=== PATIENT | female | born 1990 | race Caucasian/White ===

== ENCOUNTER 2016-08-12 02:31 | Emergency (ER) | payer MEDICAID ==
[~2016-08-12] VITALS: Ht 180.3 cm; Wt 86.2 kg
[~2016-08-12 02:31] MED LIST: ALBUTEROL0.09 MG/A1
[2016-08-12 02:35] VITALS: BP 129/73
--- NOTE | 2016-08-12 02:47 | NUR ---
PATIENT AMBULATED TO ER BED 7.
--- NOTE | 2016-08-12 02:50 | NUR ---
PT PRESENT TO ER WIT C/O DIFFICULTY BREATHING WITH RUNNYNOSE, COUGH , H/A FOR 3 DAYS.
[2016-08-12] MEDS ORDERED: ALBUTEROL SULFATE/IPRATROPIU 3 ML SOL IH ONE (03:05)
[2016-08-12 04:00] VITALS: BP 125/68
--- NOTE | 2016-08-12 04:00 | NUR ---
Patient discharged with v/s stable. Written and verbal after care instructions given and explained. Patient alert, oriented and verbalized understanding of instructions. Ambulatory with steady gait. All questions addressed prior to discharge. ID band removed. Patient advised to follow up with PMD. Rx of ALBUTEROL 90MCG/ACTUATION INHALATION, AZITHROMYCIN 250MG PO given. Patient educated on indication of medication including possible reaction and side effects. Opportunity to ask questions provided and answered.
== END 2016-08-12 04:00 | disposition home or self-care (01) ==
LOC: MED 02:31
DX: J02.8 Acute pharyngitis due to other specified organisms (principal); B96.89 Other specified bacterial agents as the cause of diseases classified elsewhere; J45.901 Unspecified asthma with (acute) exacerbation; R03.0 Elevated blood-pressure reading, without diagnosis of hypertension; Z88.1 Allergy status to other antibiotic agents
CPT/HCPCS: 94640; 99283; J7620

== ENCOUNTER 2016-09-22 07:34 | Emergency (ER) | payer MEDICAID, OTHER ==
[~2016-09-22] VITALS: Ht 182.9 cm; Wt 86.2 kg
[~2016-09-22 07:34] MED LIST changes: +ALBU0.0939; -ALBUTEROL0.09 MG/A1
[2016-09-22 07:44] VITALS: BP 120/76
--- NOTE | 2016-09-22 07:47 | NUR ---
Patient ambulated to bed 08.
--- NOTE | 2016-09-22 07:50 | NUR ---
PT PRESENTS TO ER W/C/O ITCHINESS. PT STATES SHE HAS FIBERGLASS EMBEDDED IN HER SKIN FROM 3 MONTHS AGO AND LAST NOC SHE HAD WHITE PARTICLES SEEPING OUT OF HER SKIN. HX ECZEMA, ASTHMA. DENIES N/V/D; SKIN IS PINK/WARM/DRY; AAOX4 WITH EVEN AND STEADY GAIT; LUNGS CLEAR BL; HR EVEN AND REGULAR; PT DENIES ANY FEVER, CP, SOB, OR COUGH AT THIS TIME; PATIENT STATES PAIN OF 8/10 AT THIS TIME; VSS; PATIENT POSITIONED FOR COMFORT; HOB ELEVATED; BEDRAILS UP X2; BED DOWN. ER MD MADE AWARE OF PT STATUS.
--- NOTE | 2016-09-22 07:50 | NUR ---
Note undone in EDM - 09/22/16 at 0756 by [email or web address] PT PRESENTS TO ER W/C/O ITCHINESS. PT STATES SHE HAS FIBERGLASS EMBEDDED IN HER SKIN FROM 3 MONTHS AGO AND LAST NOC SHE HAD WHITE PARTICLES SEEPING OUT OF HER SKIN. HX ECZEMA, ASTHMA.PATIENT PRESENTS TO ED WITH . PT STATES . DENIES N/V/D; SKIN IS PINK/WARM/DRY; AAOX4 WITH EVEN AND STEADY GAIT; LUNGS CLEAR BL; HR EVEN AND REGULAR; PT DENIES ANY FEVER, CP, SOB, OR COUGH AT THIS TIME; PATIENT STATES PAIN OF 0/10 AT THIS TIME; VSS; PATIENT POSITIONED FOR COMFORT; HOB ELEVATED; BEDRAILS UP X2; BED DOWN. ER MD MADE AWARE OF PT STATUS.
[2016-09-22] MEDS ORDERED: NACL 0.9% 1,000 ML IV ONE (08:41)
--- NOTE | 2016-09-22 08:45 | NUR ---
ER MD DR LOZANO EVALUATING PT AT BEDSIDE
--- NOTE | 2016-09-22 08:54 | NUR ---
LAB at bedside.
[2016-09-22] MEDS ORDERED: diphenhydrAMINE 50 MG/ML VIAL IVP ONE (08:55)
[2016-09-22] MEDS ORDERED: KETOROLAC 30 MG/ML VIAL IVP ONE (08:55)
--- NOTE | 2016-09-22 08:55 | NUR ---
INSERTED IV CATH NO 20G RAC; PT TOLERATED PROCEDURE WELL; IV PATENT/INTACT.
--- NOTE | 2016-09-22 09:02 | NUR ---
PT STATED HEADACHE 11/01 ; ADMINISTERED MEDS ORDERED .
[2016-09-22 09:06] LABS: BASOPHILS # (AUTO) 0.3 K/uL (0.00-0.22); BASOPHILS % (AUTO) 3.8 % (0.0-2.0); EOSINOPHILS # (AUTO) 0.1 K/uL (0-0.4); EOSINOPHILS % (AUTO) 1.6 % (0.0-4.0); HEMATOCRIT 39.7 % (36-48); HEMOGLOBIN 13.1 g/dL (12.0-16.0); LYMPHOCYTES # (AUTO) 2.4 K/uL (2.5-16.5); LYMPHOCYTES % (AUTO) 27.1 % (20.5-51.1); MEAN CORPUSCULAR HEMOGLOBIN 30 pg (27-31); MEAN CORPUSCULAR HGB CONC 33 g/dL (33-37); MEAN CORPUSCULAR VOLUME 90 fL (80-94); MONOCYTES # (AUTO) 0.8 K/uL (0.8-1.0); MONOCYTES % (AUTO) 8.5 % (1.7-9.3); NEUTROPHILS # (AUTO) 5.3 K/uL (1.8-7.7); PLATELET COUNT (AUTO) 445 K/uL (140-450); RED BLOOD CELL COUNT(AUTO) 4.39 MIL/uL (4.20-5.40); RED CELL DISTRIBUTION WIDTH 13.7 % (11.6-13.7); WHITE BLOOD COUNT (AUTO) 8.9 K/uL (4.8-10.8)
[2016-09-22 09:10] LABS: APPEARANCE,URINE CLEAR (CLEAR); BILIRUBIN,URINE NEGATIVE (NEGATIVE); BLOOD, URINE NEGATIVE (NEGATIVE); COLOR,URINE YELLOW (YELLOW); LEUKOCYTE ESTERASE ,URINE NEGATIVE (NEGATIVE); NITRITE, URINE NEGATIVE (NEGATIVE); PH,URINE 5.5 (5.0-9.0); PROTEIN,URINE 1+ (NEGATIVE); UGLUCOSE NEGATIVE (NEGATIVE); UROBILINOGEN,URINE 0.2 EU/dL (0.2 - 1)
[2016-09-22 09:17] LABS: AMPHETAMINE, URINE POS. ng/ml (NEG <=1000); BARBITURATE, URINE NEG. ng/ml (NEG <=200); BENZODIAZEPINE, URINE NEG. ng/mL (NEG <=200); CANNABINOID, URINE POS. ng/mL (NEG <=50); COCAINE, URINE NEG. ng/mL (NEG <=300); OPIATE, URINE NEG. ng/mL (NEG <=2000); PHENCYCLIDINE SCREEN,URINE NEG. ng/mL (NEG <=25)
[2016-09-22 09:20] LABS: PARTIAL THROMBOPLASTIN TIME 28.3 secs (22-35.6); PROTHROMBIN TIME 9.9 secs (10.8-13.4)
[2016-09-22 09:22] LABS: ALANINE AMINOTRANSFERASE 17 U/L (14-59); ALCOHOL, BLOOD < 3 mg/dL (<3); ALKALINE PHOSPHATASE 80 U/L (46-116); ANION GAP 12.8 (8-16); ASPARTATE AMINOTRANSFERASE 15 U/L (15-37); BILIRUBIN,DIRECT 0.1 mg/dL (0.0-0.3); CALCIUM 8.8 mg/dL (8.5-10.1); CARBON DIOXIDE 26.8 mmol/L (21-32); CHLORIDE 102 mmol/L (98-107); CREATININE 0.9 mg/dL (0.6-1.3); GFR ARICAN-AMERICAN 99 mL/min (>90); GFR NON ARICAN-AMERICAN 82 mL/min (>90); GLUCOSE 86 mg/dL (74-106); POTASSIUM 3.6 mmol/L (3.5-5.1); SODIUM SERUM 138 mmol/L (136-145); TOTAL BILIRUBIN 0.3 mg/dL (0.0-1.0); TOTAL PROTEIN, SERUM 8.2 g/dL (6.4-8.2); UREA NITROGEN, BLOOD 13 mg/dL (7-18)
[2016-09-22 09:41] LABS: BACTERIA,URINE 1+ /HPF (None Seen); MUCUS,URINE 1+ /LPF (None Seen); RBC,URINE 0-5 (RARE) /HPF (0-5); SQUAMOUS EPITHELIAL CELL,UR 0-3 (FEW) /LPF (0-3 (FEW)); WBC,URINE 0-5 (RARE) /HPF (0-5)
--- NOTE | 2016-09-22 09:43 | NUR ---
Patient appears to be resting comfortably in bed. Vital Signs within normal limits. Respirations even and unlabored.WILL CONTINUE TO MONITOR.
--- NOTE | 2016-09-22 11:04 | NUR ---
PT'S GIRLFRIEND AT BEDSIDE. PT STATES NO PAIN .Patient appears to be resting comfortably in bed. Vital Signs within normal limits. Respirations even and unlabored.WILL CONTINUE TO MONITOR.
--- NOTE | 2016-09-22 11:16 | NUR ---
ER MD DR LOZANO REEVALUATING PT AT BEDSIDE.
--- NOTE | 2016-09-22 11:35 | NUR ---
JUANITO LOZANO REEVALUATING PT AT BEDSIDE. Addendum: 09/22/16 at 1136 by [email or web address] PT C/O FIBER GLASS IN HEREYES. Addendum: 09/22/16 at 1145 by [email or web address] PT STATES CAN SEE CLEARLY BUT IRRIATED WHEN MOVING HER EYES.
[2016-09-22 12:00] VITALS: BP 114/66
--- NOTE | 2016-09-22 12:00 | NUR ---
Patient discharged with v/s stable. Written and verbal after care instructions given and explained. Patient alert, oriented and verbalized understanding of instructions. Ambulatory with steady gait. All questions addressed prior to discharge. ID band removed. Patient advised to follow up with PMD. Rx of BENADRYL ALLERGY, ALBUTERAL& POLYSPORIN OINTMENT given. Patient educated on indication of medication including possible reaction and side effects. Opportunity to ask questions provided and answered.
== END 2016-09-22 12:00 | disposition home or self-care (01) ==
LOC: MED 07:34
CPT/HCPCS: 36415; 70450; 80053; 80076; 80305; 81001; 81025; 85025; 85610; 85730; 87086; 93005; 96361; 96374; 96375; 99285; G0482; J1200; J1885; J7030

== ENCOUNTER 2016-11-09 18:37 | Emergency (ER) | payer OTHER ==
[~2016-11-09] VITALS: Ht 182.9 cm; Wt 82.7 kg
[2016-11-09 18:40] VITALS: BP 135/77
--- NOTE | 2016-11-09 19:31 | NUR ---
patient to er bed 8
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
--- NOTE | 2016-11-09 20:14 | NUR ---
Patient discharged with v/s stable. Written and verbal after care instructions given and explained. Patient verbalized understanding. Ambulatory with steady gait. All questions addressed prior to discharge. Advised to follow up with PMD.
[2016-11-09 20:17] VITALS: BP 135/77
== END 2016-11-09 20:17 | disposition home or self-care (01) ==
LOC: MED 18:37
DX: F41.9 Anxiety disorder, unspecified (principal); R51 Headache; J45.909 Unspecified asthma, uncomplicated; F32.9 Major depressive disorder, single episode, unspecified; Z88.1 Allergy status to other antibiotic agents; Z79.899 Other long term (current) drug therapy
CPT/HCPCS: 99284

== ENCOUNTER 2016-12-20 22:21 | Emergency (ER) | payer OTHER ==
[~2016-12-20] VITALS: Ht 182.9 cm; Wt 79.8 kg
[2016-12-20 22:35] VITALS: BP 137/90
--- NOTE | 2016-12-20 22:58 | NUR ---
PT TAKEN TO BED 3
[2016-12-20 23:00] VITALS: BP 137/90
--- NOTE | 2016-12-20 23:00 | NUR ---
PATIENT PRESENTS TO ED WITH VAG PAIN WITH ITCHINESS, FOR A MONTH, WITH ABSCESSES ON HER BODY FOR A MONTH TOO. PT DENIES N/V/D; SKIN IS PINK/WARM/DRY; AAOX4 WITH EVEN AND STEADY GAIT; LUNGS CLEAR BL; HR EVEN AND REGULAR; PT DENIES ANY FEVER, CP, SOB, OR COUGH AT THIS TIME; PATIENT STATES PAIN OF 7/10 AT THIS TIME; VSS; PATIENT POSITIONED FOR COMFORT; HOB ELEVATED; BEDRAILS UP X2; BED DOWN. ER MD MADE AWARE OF PT STATUS.
--- NOTE | 2016-12-20 23:02 | NUR ---
PT REFUSING TO GIVE A UA. SHE STS " I WILL TALK TO THE ER MD ABOUT IT FRIST. " ER MD NOTIFTED
--- NOTE | 2016-12-20 23:14 | NUR ---
PT ASKED FOR WARM PACK FOR WOUND PAIN. WARM PACK GIVEN. ER MD DR BONNER AT BEDSIDE
--- NOTE | 2016-12-20 23:15 | NUR ---
Dr. Alejandre evaluating patient at bedside.
[2016-12-20] MEDS ORDERED: PRON INH (23:18)
--- NOTE | 2016-12-20 23:38 | NUR ---
FEMALE CHAPERONED FOR DR. KIMBALL DURING PATIENT EXAM
[2016-12-21] MEDS ORDERED: predniSONE 20 MG TAB PO ONE
--- NOTE | 2016-12-21 00:11 | NUR ---
Patient discharged with v/s stable. Written and verbal after care instructions given and explained. Patient alert, oriented and verbalized understanding of instructions. Ambulatory with steady gait. All questions addressed prior to discharge. ID band removed. Patient advised to follow up with PMD. Rx of ibuprofen and medrol dosepak given. Patient educated on indication of medication including possible reaction and side effects. Opportunity to ask questions provided and answered.
== END 2016-12-21 00:11 | disposition home or self-care (01) ==
LOC: MED 22:21
DX: S30.861A Insect bite (nonvenomous) of abdominal wall, initial encounter (principal); S80.869A Insect bite (nonvenomous), unspecified lower leg, initial encounter; S40.862A Insect bite (nonvenomous) of left upper arm, initial encounter; S40.861A Insect bite (nonvenomous) of right upper arm, initial encounter; S30.860A Insect bite (nonvenomous) of lower back and pelvis, initial encounter; R03.0 Elevated blood-pressure reading, without diagnosis of hypertension; W57.XXXA Bitten or stung by nonvenomous insect and other nonvenomous arthropods, initial encounter; Y93.89 Activity, other specified; Y92.89 Other specified places as the place of occurrence of the external cause; Y99.8 Other external cause status
CPT/HCPCS: 99283; J7512

== ENCOUNTER 2018-06-09 11:46 | Emergency (ER) | payer SELFPAY ==
[~2018-06-09] VITALS: Ht 182.9 cm; Wt 79.4 kg
[~2018-06-09 11:46] MED LIST changes: -ALBU0.0939; +PRON INH
[2018-06-09 11:58] VITALS: BP 132/79
[2018-06-09 13:06] VITALS: BP 113/61
--- NOTE | 2018-06-09 13:10 | NUR ---
REASSESED PT. FOOT PAIN 09/01
--- NOTE | 2018-06-09 14:25 | NUR ---
1ST CALL, PT NOT IN LOBBY
--- NOTE | 2018-06-09 14:44 | NUR ---
2ND CALL, PT NOT IN LOBBY
== END 2018-06-09 14:25 | disposition left against medical advice (07) ==
LOC: MED 11:46
DX: M79.672 Pain in left foot (principal); Z53.21 Procedure and treatment not carried out due to patient leaving prior to being seen by health care provider

== ENCOUNTER 2021-09-05 17:03 | Emergency (ER) | payer OTHER ==
[~2021-09-05] VITALS: Ht 180.3 cm; Wt 72.6 kg
[2021-09-05 17:06] VITALS: BP 119/71
--- NOTE | 2021-09-05 17:14 | NUR ---
PT AMB TO BED4.
--- NOTE | 2021-09-05 17:20 | NUR ---
walked in c/o r foot pain onset 3 days while playing basketball. denies fall or injury. aaox3, ambulatory, vitals stable.
[2021-09-05] MEDS ORDERED: IBUPROFEN 600 MG TAB PO ONE (17:35)
--- NOTE | 2021-09-05 17:52 | NUR ---
XR AT BEDSIDE
[2021-09-05] MEDS ORDERED: IBUP-2213 PO (18:15)
--- NOTE | 2021-09-05 18:37 | NUR ---
Patient discharged with v/s stable. Written and verbal after care instructions given and explained. Patient alert, oriented and verbalized understanding of instructions. Ambulatory with steady gait. All questions addressed prior to discharge. ID band removed. Patient advised to follow up with PMD. Patient educated on indication of medication including possible reaction and side effects. Opportunity to ask questions provided and answered.
[2021-09-05 18:38] VITALS: BP 125/64
== END 2021-09-05 18:37 | disposition home or self-care (01) ==
LOC: MED 17:03
DX: M79.671 Pain in right foot (principal); G89.29 Other chronic pain; J45.909 Unspecified asthma, uncomplicated; Z79.899 Other long term (current) drug therapy
CPT/HCPCS: 73630; 81025; 99283